=== PATIENT | female | born 1980 | race Hispanic/Latino ===

== ENCOUNTER 2018-12-30 21:43 | Emergency (ER) | payer OTHER ==
[~2018-12-30] VITALS: Ht 165.1 cm; Wt 70.3 kg
--- OUTSIDE RECORDS SUMMARY | 2018-12-30 21:46 | XMS REPORT | Summary of Care ---
Author Author OBDULIO GANDHI M.D. Organization Unknown Address Unknown Phone Unavailable Care Team Providers Care Corporate Legal Secretary Name Role Phone OBDULIO GANDHI M.D. Unavailable Unavailable CARITO BARRIENTOS M.D. Unavailable Unavailable MARC APPLE MD Unavailable Unavailable Unavailable Unavailable Functional Status Name Dates Details Functional status health issues are not documented Status: Name Dates Details Cognitive status health issues are not documented Status: Problems Name Dates Details Chest tightness or pressure (786.59, R07.89) Status: Active Essential (primary) hypertension (401.9, I10) Status: Active Palpitations (785.1, R00.2) Status: Active Medications Name Dates Details Acetaminophen 325 MG Oral Tablet CORTEZ WELLS M.D., CARITO * Start : 16-Nov-2018 Active Vitamin D3 1000 UNIT Oral Capsule * Refills: 0 CORTEZ WELLS M.D., CARITO * Start : 16-Nov-2018 Active Vitamin C 100 MG Oral Tablet * Refills: 0 CORTEZ WELLS M.D., CARITO * Start : 16-Nov-2018 Active Metoprolol Succinate ER 25 MG Oral Tablet Extended Release 24 Hour TAKE 1 TABLET BEDTIME * Quantity: 30 Refills: 1 OKSANA Sherwood, OBDULIO * Start : 16-Nov-2018 Active Allergies and Adverse Reactions Name Dates Details No Known Drug Allergies (Allergy) Status: Active Past Medical History Name Dates Details History of essential hypertension (V12.59, Z86.79) Status: Resolved Procedures Procedure Dates Details History of Section Completed History of Laparoscopy (Diagnostic) Completed History of Root canal procedure Completed Immunization Name Dates Details Immunizations not documented Family History Name Dates Details Family history of Diabetes Mellitus (V18.0) Comments: Family History Status: Active Family history of Hypertension (V17.49) Comments: Family History Status: Active Social History Name Dates Details Unknown if ever smoked Vital Signs Date Test Result Details No Known Vitals to report Results Date Description Value Details Results not documented Plan of Care Name Dates Details Planned Observations Planned Goals not documented Planned Encounters Appointment; OBDULIO GANDHI M.D. On: 16-Feb-2019 15:10 Interventions Provided Medication Changes* Metoprolol Succinate ER 25 MG Oral Tablet Extended Release 24 Hour - Start Plan* 1. Chest pain * - atypical * - prior negative work up (echo and stress) * - will have TMT only * 2. palpitations * - trail of Toprol * - check TSH * 3. Follow up w/ results Discussion/Summary* Clinical cardiac findings reviewed and discussed * EKG reviewed and discussed Instructions Name Dates Details Instructions not documented Encounters Appointment; OBDULIO GANDHI M.D. Encounter Diagnosis: Problem not documented On: 16-Nov-2018 14:30
[2018-12-30] MEDS ORDERED: HYDROCODONE/APAP 5MG-325MG TAB PO ONE (22:00)
[2018-12-30] MEDS ORDERED: ONDANSETRON HCL 4 MG ORAL DISINTEGRATING TAB PO ONE (22:00)
== END 2018-12-30 22:18 | disposition home or self-care (01) ==
LOC: FSED 21:43
DX: K08.89 Other specified disorders of teeth and supporting structures (principal)
CPT/HCPCS: 99282